=== PATIENT | male | born 1965 ===

== ENCOUNTER → 2021-12-16 08:00 | Outpatient (CLI) | payer OTHER ==
[~2021-12-16] VITALS: Ht 180.3 cm; Wt 100.7 kg
[~2021-12-16 08:00] MED LIST: ATORVASTATIN CA10 MG PO; GABAPENT PO; GRALISE600 MG PO; KETO10TA2 PO; MIRALAX17 GM PO; NEURONTIN300 MG PO; PEPCID AC20 MG PO; TYLENOL ARTHRI650 MG PO; ULTRAM50 MG PO
== END | disposition home or self-care (01) ==
LOC: LAB 08:00 → EDSTATUS 12-18 08:45 → SURH 12-18 08:45
PROVIDERS: ATTEND Surgery
DX: K43.0 Incisional hernia with obstruction, without gangrene (principal); K42.0 Umbilical hernia with obstruction, without gangrene

== ENCOUNTER 2022-01-12 11:32 | Inpatient (IN) | payer OTHER ==
[~2022-01-12] VITALS: Ht 167.6 cm; Wt 100.7 kg
[~2022-01-12 11:32] MED LIST changes: -GRALISE600 MG PO; -KETO10TA2 PO; -MIRALAX17 GM PO; -NEURONTIN300 MG PO; -PEPCID AC20 MG PO; -TYLENOL ARTHRI650 MG PO; -ULTRAM50 MG PO
[2022-01-15] MEDS ORDERED: GRALISE600 MG PO (13:22)
[2022-01-18] MEDS ORDERED: TYLENOL ARTHRI650 MG PO (10:35)
[2022-01-18] MEDS ORDERED: PEPCID AC20 MG PO (10:35)
[2022-01-18] MEDS ORDERED: KETO10TA2 PO (10:35)
[2022-01-18] MEDS ORDERED: MIRALAX17 GM PO (10:35)
[2022-01-18] MEDS ORDERED: NEURONTIN300 MG PO (10:35)
[2022-01-19] MEDS ORDERED: ULTRAM50 MG PO (05:10)
== END 2022-01-19 15:39 | disposition home or self-care (01) | DRG 330 ==
LOC: SURH 01-15 08:04 → O/R 01-15 10:27 → SURH 01-15 12:30
PROVIDERS: ADMIT Surgery; ATTEND Surgery
PROC: 0WUF0JZ Supplement Abdominal Wall with Synthetic Substitute, Open Approach (ICD-10-PCS; 2022-01-15)
PROC: 0DN80ZZ Release Small Intestine, Open Approach (ICD-10-PCS; 2022-01-15)
PROC: 0WQF0ZZ Repair Abdominal Wall, Open Approach (ICD-10-PCS; 2022-01-15)
PROC: 0DNU0ZZ Release Omentum, Open Approach (ICD-10-PCS; 2022-01-15)
PROC: 0DQ80ZZ Repair Small Intestine, Open Approach (ICD-10-PCS; principal; 2022-01-15 12:30)
DX: K43.0 Incisional hernia with obstruction, without gangrene (principal); K91.72 Accidental puncture and laceration of a digestive system organ or structure during other procedure; K42.0 Umbilical hernia with obstruction, without gangrene; K66.0 Peritoneal adhesions (postprocedural) (postinfection); E78.00 Pure hypercholesterolemia, unspecified; M54.16 Radiculopathy, lumbar region